=== PATIENT | female | born 1960 | race Caucasian/White ===

== ENCOUNTER 2017-09-20 19:38 | Emergency (ER) | payer SELFPAY ==
[~2017-09-20] VITALS: Ht 157.5 cm; Wt 75.0 kg
[2017-09-20 19:41] VITALS: BP 164/105; PULSE 148; RESP 20; TEMP 98.7; O2SAT 98
[2017-09-20] MEDS ORDERED: SODIUM CHLOR 0.9% 1000 ML INJ 1,000 ML IV SCH (20:57)
--- NOTE | 2017-09-20 20:57 | PD ---
HPI Chief Complaint: GI Complaint Time Seen by Provider: 20:52 Travel History International Travel<30 days: No Contact w/Intl Traveler<30days: No Traveled to known affect area: No History of Present Illness HPI 56-year-old female with history of alcoholism, presents emergency department for evaluation of nausea and vomiting with epigastric pain since this morning. Patient has been on a 2 day alcohol binge but has not consumed any alcohol since yesterday. She states that the pain is severe. Is not radiating anywhere. She states this has happened before when she has gone on alcohol binges. She denies any fever or chills. She states her last few emesis appeared brown and tasted like blood. Denies any hematochezia. Denies any other drug use. Patient has no other symptoms to report. PFSH Past Medical History Arthritis: Yes Autoimmune Disease: No Anxiety: Yes Depression: Yes Heart Rhythm Problems: Yes Cancer: No Cardiac Catheterization: No Cardiovascular Problems: Yes High Cholesterol: No Chemotherapy: No Congestive Heart Failure: No Coronary Artery Disease: No Diabetes: No Diminished Hearing: No Endocrine: No Hypertension: Yes Immune Disorder: No Psychiatric: No Immunizations Current: Yes Thyroid Disease: No ?: Not Tubal Ligation: Yes Past Surgical History Coronary Artery Bypass Graft: No Gynecologic Surgery: Yes Social History Alcohol Use: Yes (OCC FOR PAST 4 MONTHS "SINCE STARTING AA") Tobacco Use: Yes (1 PPD) Substance Use: No Allergies-Medications (Allergen,Severity, Reaction): Coded Allergies: animal dander (Unverified Allergy, Mild, UNK, 09/20/17) egg (Unverified Allergy, Mild, ABD PAIN, 09/20/17) peanut (Unverified Allergy, Mild, HIVES. SWELLING, 09/20/17) penicillin G (Unverified Allergy, Mild, ABD CRAMPS, 09/20/17) soy fiber (Unverified Allergy, Mild, ABD CRAMPS, 09/20/17) Uncoded Allergies: ANTIDEPRESSANTS (Allergy, Mild, STOUT, 05/06/11) DIARY (Allergy, Mild, ABD CRAMPS, 05/06/11) antibiotic (cannot remember) (Allergy, Mild, 11/06/07) Reported Meds & Prescriptions Reported Meds & Active Scripts Active No Active Prescriptions or Reported Medications Review of Systems Except as stated in HPI: all other systems reviewed are Neg Physical Exam Narrative GENERAL: Well nourished female patient, ambulatory no acute distress. SKIN: Focused skin assessment warm/dry. HEAD: Atraumatic. Normocephalic. EYES: Pupils equal and round. No scleral icterus. No injection or drainage. ENT: No nasal bleeding or discharge. Mucous membranes pink and moist. NECK: Trachea midline. No JVD. CARDIOVASCULAR: Tachycardic rate and rhythm. No murmur appreciated. RESPIRATORY: No accessory muscle use. Clear to auscultation. Breath sounds equal bilaterally. GASTROINTESTINAL: Abdomen office. Nondistended. Generalized tenderness to palpation.. MUSCULOSKELETAL: No obvious deformities. No clubbing. No cyanosis. No edema. NEUROLOGICAL: Awake and alert. No obvious cranial nerve deficits. Motor grossly within normal limits. Normal speech. PSYCHIATRIC: Appropriate mood and affect Data Data Last Documented VS Vital Signs Date Time Temp Pulse Resp B/P (MAP) Pulse Ox O2 Delivery O2 Flow Rate FiO2 09/20/17 21:02 100 Room Air 09/20/17 19:41 98.7 148 20 Orders Orders Complete Blood Count With Diff (09/20/17 20:57) Comprehensive Metabolic Panel (09/20/17 20:57) Lipase (09/20/17 20:57) Prothrombin Time / Inr (Pt) (09/20/17 20:57) Act Partial Throm Time (Ptt) (09/20/17 20:57) Urinalysis - C+S If Indicated (09/20/17 20:57) Iv Access Insert/Monitor (09/20/17 20:57) Ecg Monitoring (09/20/17 20:57) Oximetry (09/20/17 20:57) Ondansetron Inj (Zofran Inj) (09/20/17 21:00) Sodium Chlor 0.9% 1000 Ml Inj (Ns 1000 M (09/20/17 20:57) Sodium Chloride 0.9% Flush (Ns Flush) (09/20/17 21:00) Electrocardiogram (09/20/17 20:57) Lorazepam Inj (Ativan Inj) (09/20/17 21:00) Pantoprazole Inj (Protonix Inj) (09/20/17 21:45) Sodium Chlor 0.9% 1000 Ml Inj (Ns 1000 M (09/20/17 22:15) Lorazepam Inj (Ativan Inj) (09/20/17 22:30) Labs Laboratory Tests Test 09/20/17 21:04 White Blood Count 20.3 TH/MM3 Red Blood Count 5.97 MIL/MM3 Hemoglobin 18.9 GM/DL Hematocrit 56.0 % Mean Corpuscular Volume 93.7 FL Mean Corpuscular Hemoglobin 31.6 PG Mean Corpuscular Hemoglobin Concent 33.7 % Red Cell Distribution Width 13.2 % Platelet Count 310 TH/MM3 Mean Platelet Volume 9.2 FL Neutrophils (%) (Auto) 91.3 % Lymphocytes (%) (Auto) 4.8 % Monocytes (%) (Auto) 3.6 % Eosinophils (%) (Auto) 0.0 % Basophils (%) (Auto) 0.3 % Neutrophils # (Auto) 18.5 TH/MM3 Lymphocytes # (Auto) 1.0 TH/MM3 Monocytes # (Auto) 0.7 TH/MM3 Eosinophils # (Auto) 0.0 TH/MM3 Basophils # (Auto) 0.1 TH/MM3 CBC Comment DIFF FINAL Differential Comment Prothrombin Time 10.8 SEC Prothromb Time International Ratio 1.1 RATIO Activated Partial Thromboplast Time 27.9 SEC Blood Urea Nitrogen 24 MG/DL Creatinine 1.29 MG/DL Random Glucose 229 MG/DL Total Protein 9.4 GM/DL Albumin 4.9 GM/DL Calcium Level 9.4 MG/DL Alkaline Phosphatase 108 U/L Aspartate Amino Transf (AST/SGOT) 23 U/L Alanine Aminotransferase (ALT/SGPT) 61 U/L Total Bilirubin 1.0 MG/DL Sodium Level 136 MEQ/L Potassium Level 4.3 MEQ/L Chloride Level 98 MEQ/L Carbon Dioxide Level 14.1 MEQ/L Anion Gap 24 MEQ/L Estimat Glomerular Filtration Rate 43 ML/MIN Lipase 53 U/L [facility] Medical Decision Making Medical Screen Exam Complete: Yes Emergency Medical Condition: Yes Medical Record Reviewed: Yes Differential Diagnosis Alcohol-induced gastritis versus esophageal varices versus pancreatitis versus cholecystitis versus alcohol withdrawal Narrative Course 56-year-old female presents to emergency department for evaluation of nausea and vomiting after a 2 day alcohol binge. Patient appears without distress. She is tachycardic initially. Patient is given IV fluids and Ativan. Patient does have generalized abdominal tenderness, however after pain control, is isolated to the epigastrium and much improved. Patient is given IV normal saline fluid while labs pend. Laboratory Tests Test 09/20/17 21:04 White Blood Count 20.3 TH/MM3 Red Blood Count 5.97 MIL/MM3 Hemoglobin 18.9 GM/DL Hematocrit 56.0 % Mean Corpuscular Volume 93.7 FL Mean Corpuscular Hemoglobin 31.6 PG Mean Corpuscular Hemoglobin Concent 33.7 % Red Cell Distribution Width 13.2 % Platelet Count 310 TH/MM3 Mean Platelet Volume 9.2 FL Neutrophils (%) (Auto) 91.3 % Lymphocytes (%) (Auto) 4.8 % Monocytes (%) (Auto) 3.6 % Eosinophils (%) (Auto) 0.0 % Basophils (%) (Auto) 0.3 % Neutrophils # (Auto) 18.5 TH/MM3 Lymphocytes # (Auto) 1.0 TH/MM3 Monocytes # (Auto) 0.7 TH/MM3 Eosinophils # (Auto) 0.0 TH/MM3 Basophils # (Auto) 0.1 TH/MM3 CBC Comment DIFF FINAL Differential Comment Prothrombin Time 10.8 SEC Prothromb Time International Ratio 1.1 RATIO Activated Partial Thromboplast Time 27.9 SEC Blood Urea Nitrogen 24 MG/DL Creatinine 1.29 MG/DL Random Glucose 229 MG/DL Total Protein 9.4 GM/DL Albumin 4.9 GM/DL Calcium Level 9.4 MG/DL Alkaline Phosphatase 108 U/L Aspartate Amino Transf (AST/SGOT) 23 U/L Alanine Aminotransferase (ALT/SGPT) 61 U/L Total Bilirubin 1.0 MG/DL Sodium Level 136 MEQ/L Potassium Level 4.3 MEQ/L Chloride Level 98 MEQ/L Carbon Dioxide Level 14.1 MEQ/L Anion Gap 24 MEQ/L Estimat Glomerular Filtration Rate 43 ML/MIN Lipase 53 U/L Patient's leukocytosis is likely secondary to vomiting and dehydration with a hemoglobin of 18.9. BMI is 24, creatinine is 1.29. Electrolytes are within normal limits. She has remained tachycardic. Patient given additional IV normal saline fluid. Hemoccult of emesis is positive. Patient is also given IV Protonix. Patient is signed out to my attending physician Dr. Zepeda who will disposition the patient per her judgment. [facility] Point of Care Internal Pos. & Neg. Controls: Passed Gastric Specimen Occult Blood: Positive Diagnosis Primary Impression: Nausea & vomiting Qualified Codes: R11.2 - Nausea with vomiting, unspecified Additional Impressions: Alcohol abuse Gastritis Qualified Codes: K29.21 - Alcoholic gastritis with bleeding Scripts No Active Prescriptions or Reported Meds Condition: Rhona Barrera Sep 20, 2017 20:57
[2017-09-20] MEDS ORDERED: LORazepam 2 MG/ML VIAL IV PUSH ONE ×2 (21:00→22:30)
[2017-09-20] MEDS ORDERED: SODIUM CHLORIDE 0.9% FLUSH 10 ML FLUSH IV FLUSH PRN (21:00)
[2017-09-20] MEDS ORDERED: ONDANSETRON HCL 4 MG/2 ML VIAL IVP ONE (21:00)
[2017-09-20 21:02] VITALS: O2SAT 100
--- NOTE | 2017-09-20 21:29 | PD ---
Physical Exam Date Seen by Provider: Sep 20, 2017 Narrative Patient presents with nausea and vomiting which started after heavy alcohol consumption Data Data Last Documented VS Vital Signs Date Time Temp Pulse Resp B/P (MAP) Pulse Ox O2 Delivery O2 Flow Rate FiO2 09/20/17 21:02 100 Room Air 09/20/17 19:41 98.7 148 20 Orders Orders Complete Blood Count With Diff (09/20/17 20:57) Comprehensive Metabolic Panel (09/20/17 20:57) Lipase (09/20/17 20:57) Prothrombin Time / Inr (Pt) (09/20/17 20:57) Act Partial Throm Time (Ptt) (09/20/17 20:57) Urinalysis - C+S If Indicated (09/20/17 20:57) Iv Access Insert/Monitor (09/20/17:57) Ecg Monitoring (09/20/17:57) Oximetry (09/20/17 20:57) Ondansetron Inj (Zofran Inj) (09/20/17 21:00) Sodium Chlor 0.9% 1000 Ml Inj (Ns 1000 M (09/20/17 20:57) Sodium Chloride 0.9% Flush (Ns Flush) (09/20/17 21:00) Electrocardiogram (09/20/17 20:57) Lorazepam Inj (Ativan Inj) (09/20/17 21:00) MDM Supervised Visit with JOAN: Yes Narrative Course I, Dr. Zepeda, have reviewed the advance practice practitioner's documentation and am in agreement, met with the patient face to face, made the diagnosis, and the medical decision making was done by me. *My assessment and Findings: Patient is awake and alert. She has an emesis bag up by her mouth. Please see Rhona Amezcua NP's note for results of laboratory and radiographic evaluation, ED course, final diagnosis and disposition Scripts No Active Prescriptions or Reported Meds Patti Zepeda MD Sep 20, 2017 21:29
[2017-09-20 21:44] LABS: AUTOMATED NEUTROPHIL # 18.5 TH/MM3 (1.8-7.7); BASOPHIL # 0.1 TH/MM3 (0-0.2); BASOPHIL % 0.3 % (0.0-2.0); HEMO FLAGS DIFF FINAL; LYMPH % 4.8 % (9.0-44.0); MEAN CELL VOLUME 93.7 FL (80.0-100.0); MEAN CORPUSCULAR HEMOGLOBIN 31.6 PG (27.0-34.0); MEAN CORPUSCULAR HGB CONC 33.7 % (32.0-36.0); MONO % 3.6 % (0.0-8.0); NEUT % 91.3 % (16.0-70.0); PLATELET COUNT 310 TH/MM3 (150-450); RED BLOOD COUNT 5.97 MIL/MM3 (4.00-5.30); RED CELL DISTRIBUTION WIDTH 13.2 % (11.6-17.2); WHITE BLOOD COUNT 20.3 TH/MM3 (4.0-11.0)
[2017-09-20] MEDS ORDERED: PANTOPRAZOLE SODIUM 40 MG VIAL IV PUSH ONE (21:45)
[2017-09-20 21:49] LABS: APTT (PATIENT) 27.9 SEC (24.3-30.1); INTERNATIONAL NORMALIZED RATIO 1.1 RATIO; PROTHROMBIN TIME - PATIENT 10.8 SEC (9.8-11.6)
[2017-09-20 22:01] LABS: ALT (GPT) 61 U/L (10-53); ANION GAP 24 MEQ/L (5-15); AST (GOT) 23 U/L (15-37); BICARBONATE 14.1 MEQ/L (21.0-32.0); BLOOD UREA NITROGEN 24 MG/DL (7-18); CHLORIDE 98 MEQ/L (98-107); GLOMERULAR FILTRATION RATE 43 ML/MIN (>89); POTASSIUM 4.3 MEQ/L (3.5-5.1); SODIUM (NA) 136 MEQ/L (136-145)
[2017-09-20 22:04] LABS: ALKALINE PHOSPHATASE 108 U/L (45-117)
[2017-09-20] MEDS ORDERED: SODIUM CHLOR 0.9% 1000 ML INJ 1,000 ML IV ONE (22:15)
[2017-09-20 22:33] VITALS: PULSE 133
[2017-09-21 00:08] VITALS: BP 132/82; PULSE 134; RESP 20; O2SAT 100
[2017-09-21] MEDS ORDERED: ZOFR4TAB PO (00:18)
[2017-09-21] MEDS ORDERED: PRIL20TA2 PO (00:18)
--- NOTE | 2017-09-21 19:27 | EKG ---
Date Performed: 09/20/2017 Time Performed: 21:11:47 PTAGE: 56 years EKG: SINUS TACHYCARDIA NONSPECIFIC ST & T-WAVE ABNORMALITY ABNORMAL RHYTHM ECG PREVIOUS TRACING : 12/11/2015 11.20 SINCE PRIOR TRACING HEART RATE IS FASTER AND NONSPECIFIC FA CTOR ARE MORE PROMINENT. DOCTOR: Priyank Villalobos Interpretating Date/Time 09/21/2017 19:26:08
== END 2017-09-21 00:28 | disposition home or self-care (01) ==
LOC: NEPE 19:38
DX: R11.2 Nausea with vomiting, unspecified (principal); K29.20 Alcoholic gastritis without bleeding; D72.829 Elevated white blood cell count, unspecified; R00.0 Tachycardia, unspecified; R94.31 Abnormal electrocardiogram [ECG] [EKG]; M19.90 Unspecified osteoarthritis, unspecified site; F41.9 Anxiety disorder, unspecified; I10 Essential (primary) hypertension; F17.200 Nicotine dependence, unspecified, uncomplicated
CPT/HCPCS: 80053; 83690; 85025; 85610; 85730; 93005; 96361; 96374; 96375; 96376; 99284; C9113; J2060; J2405; J7030

== ENCOUNTER 2018-01-29 19:00 | Emergency (ER) | payer SELFPAY ==
[~2018-01-29] VITALS: Ht 157.5 cm; Wt 72.0 kg
[~2018-01-29 19:00] MED LIST: PRIL20TA2 PO; ZOFR4TAB PO
[2018-01-29 19:14] VITALS: BP 152/115; PULSE 136; RESP 26; TEMP 97.4; O2SAT 98
--- NOTE | 2018-01-29 19:56 | PD ---
HPI Chief Complaint: GI Complaint Time Seen by Provider: 19:26 Travel History International Travel<30 days: No Contact w/Intl Traveler<30days: No Traveled to known affect area: No History of Present Illness HPI Patient is a 57-year-old female who is coming in complaining that she has been drinking whiskey without eating for 2 days. She has been vomiting excessively all day today since 1:00 pm ..she is not able to tolerate any p.o... she is unable to tolerate fluid as well. she says all she wants to do is drink some water. She has had an episode of this a few years back came to the ER for the same .. she denies being a chronic alcohol abuser .. she says this happens very rarely wherever she over does it ,,once in a blue white. Patient denies abdominal surgery except for tubal ligation many years ago.. she denies problems with her pancreas... she denies problems with her gallbladder ..she denies any liver problems.. she is sitting in the bed tripoding leaning forward looking like she is in severe pain and very uncomfortable . She is complaining of epigastric periumbilical pain and severe nausea since 1 PM today.. unable to keep anything down to alleviate her symptoms. Has not tried anything to calm her symptoms PFSH Past Medical History Arthritis: Yes Autoimmune Disease: No Anxiety: Yes Depression: Yes Heart Rhythm Problems: Yes Cancer: No Cardiac Catheterization: No Cardiovascular Problems: Yes High Cholesterol: No Chemotherapy: No Congestive Heart Failure: No Coronary Artery Disease: No Diabetes: No Diminished Hearing: No Endocrine: No Heparin Induced Thrombocytopen: No Hypertension: Yes Immune Disorder: No Implanted Vascular Access Dvce: No Psychiatric: No Immunizations Current: Yes Thyroid Disease: No ?: Not Tubal Ligation: Yes Past Surgical History Coronary Artery Bypass Graft: No Gynecologic Surgery: Yes Family History Family Myocardial Infarction: No Social History Alcohol Use: Yes ([facility] FOR PAST 4 MONTHS "SINCE STARTING AA") Tobacco Use: Yes (1 PPD) Substance Use: Yes (MARIJUANA ) Allergies-Medications (Allergen,Severity, Reaction): Coded Allergies: animal dander (Unverified Allergy, Mild, UNK, 01/29/18) egg (Unverified Allergy, Mild, ABD PAIN, 01/29/18) peanut (Unverified Allergy, Mild, HIVES. SWELLING, 01/29/18) penicillin G (Unverified Allergy, Mild, ABD CRAMPS, 01/29/18) soy fiber (Unverified Allergy, Mild, ABD CRAMPS, 01/29/18) azithromycin (Verified Allergy, Unknown, 01/29/18) Uncoded Allergies: ANTIDEPRESSANTS (Allergy, Mild, STOUT, 05/06/11) DIARY (Allergy, Mild, ABD CRAMPS, 05/06/11) antibiotic (cannot remember) (Allergy, Mild, 11/06/07) Reported Meds & Prescriptions Reported Meds & Active Scripts Active Ativan (Lorazepam) 0.5 Mg Tab 0.5 Mg PO Q8H PRN Zofran (Ondansetron HCl) 4 Mg Tab 4 Mg PO Q6HR PRN Prilosec (Omeprazole Magnesium) 20 Mg Tab 1 Tab PO DAILY Zofran (Ondansetron HCl) 4 Mg Tab 4 Mg PO Q6HR PRN Review of Systems Except as stated in HPI: all other systems reviewed are Neg Gastrointestinal: Positive: Nausea, Vomiting, Abdominal Pain Physical Exam Narrative GENERAL: Patient appears very uncomfortable she is leaning forward in the bed trying not to lie down no active retching or vomiting at this time SKIN: Warm and dry. HEAD: Atraumatic. Normocephalic. EYES: Pupils equal and round. No scleral icterus. No injection or drainage. ENT: No nasal bleeding or discharge. Mucous membranes pink and moist. NECK: Trachea midline. No JVD. CARDIOVASCULAR: Regular rate and rhythm. RESPIRATORY: No accessory muscle use. Clear to auscultation. Breath sounds equal bilaterally. GASTROINTESTINAL: Abdomen mild tenderness epigastrium and periumbilical area. There is no right lower quadrant or right upper quadrant tenderness MUSCULOSKELETAL: Extremities without clubbing, cyanosis, or edema. No obvious deformities. NEUROLOGICAL: Awake and alert. No obvious cranial nerve deficits. Motor grossly within normal limits. Five out of 5 muscle strength in the arms and legs. Normal speech. PSYCHIATRIC: Appropriate mood and affect; insight and judgment normal. Data Data Last Documented VS Vital Signs Date Time Temp Pulse Resp B/P (MAP) Pulse Ox O2 Delivery O2 Flow Rate FiO2 01/30/18 06:47 01/30/18 05:16 89 16 96 Room Air 01/29/18 19:14 97.4 Orders Orders Complete Blood Count With Diff (01/29/18 19:52) Comprehensive Metabolic Panel (01/29/18 19:52) Lipase (01/29/18 19:52) Ondansetron Inj (Zofran Inj) (01/29/18 20:00) Famotidine Inj (Pepcid Inj) (01/29/18 20:00) Sodium Chlor 0.9% 1000 Ml Inj (Ns 1000 M (01/29/18 20:00) Lorazepam Inj (Ativan Inj) (01/29/18 21:15) Dext 5%-Nacl 0.9% 1000 Ml Inj (D5w-Ns 10 (01/29/18 21:15) Urinalysis - C+S If Indicated (01/29/18 21:07) Electrocardiogram (01/29/18 ) Troponin I (01/29/18 21:38) Chest, Pa & Lat (01/29/18 ) Lorazepam Inj (Ativan Inj) (01/29/18 23:15) Chlordiazepoxide (Librium) (01/30/18 00:15) Alcohol (Ethanol) (01/30/18 02:27) Sodium Chlor 0.9% 1000 Ml Inj (Ns 1000 M (01/30/18 03:30) Sodium Chlor 0.9% 1000 Ml Inj (Ns 1000 M (01/30/18 03:30) Ed Discharge Order (01/30/18 06:24) Electrocardiogram (01/29/18 21:37) Labs Laboratory Tests Test 01/29/18 20:00 01/29/18 21:15 White Blood Count 22.6 TH/MM3 Red Blood Count 5.94 MIL/MM3 Hemoglobin 18.1 GM/DL Hematocrit 53.8 % Mean Corpuscular Volume 90.6 FL Mean Corpuscular Hemoglobin 30.4 PG Mean Corpuscular Hemoglobin Concent 33.6 % Red Cell Distribution Width 12.9 % Platelet Count 280 TH/MM3 Mean Platelet Volume 9.3 FL Neutrophils (%) (Auto) 89.3 % Lymphocytes (%) (Auto) 6.7 % Monocytes (%) (Auto) 3.7 % Eosinophils (%) (Auto) 0.0 % Basophils (%) (Auto) 0.3 % Neutrophils # (Auto) 20.2 TH/MM3 Lymphocytes # (Auto) 1.5 TH/MM3 Monocytes # (Auto) 0.8 TH/MM3 Eosinophils # (Auto) 0.0 TH/MM3 Basophils # (Auto) 0.1 TH/MM3 CBC Comment DIFF FINAL Differential Comment Blood Urea Nitrogen 17 MG/DL Creatinine 0.90 MG/DL Random Glucose 117 MG/DL Total Protein 8.7 GM/DL Albumin 4.9 GM/DL Calcium Level 9.8 MG/DL Alkaline Phosphatase 98 U/L Aspartate Amino Transf (AST/SGOT) 28 U/L Alanine Aminotransferase (ALT/SGPT) 65 U/L Total Bilirubin 0.9 MG/DL Sodium Level 138 MEQ/L Potassium Level 4.1 MEQ/L Chloride Level 102 MEQ/L Carbon Dioxide Level 18.6 MEQ/L Anion Gap 17 MEQ/L Estimat Glomerular Filtration Rate 65 ML/MIN Troponin I LESS THAN 0.02 NG/ML Lipase 96 U/L Ethyl Alcohol Level LESS THAN 3 MG/DL Urine Color YELLOW Urine Turbidity CLEAR Urine pH 5.5 Urine Specific [place] 1.021 Urine Protein 100 mg/dL Urine Glucose (UA) NEG mg/dL Urine Ketones 150 mg/dL Urine Occult Blood NEG Urine Nitrite NEG Urine Bilirubin NEG Urine Urobilinogen 2.0 MG/DL Urine Leukocyte Esterase NEG Urine RBC 1 /hpf Urine WBC 2 /hpf Urine Squamous Epithelial Cells 4 /hpf Urine Bacteria RARE /hpf Urine Hyaline Casts 77 /lpf Urine Mucus FEW /lpf Microscopic Urinalysis Comment CULT NOT INDICATED MDM Medical Decision Making Medical Screen Exam Complete: Yes Emergency Medical Condition: Yes Differential Diagnosis Differential diagnosis includes alcohol induced gastritis versus pancreatitis versus cholecystitis versus gastric reflux disease NOS versus obstruction versus other Narrative Course Pepcid IV Zofran IV liter of fluid reevaluate labs reassess then she was tachy possibly due to etoh withdrawal Ativan and 3 liters NS iv over 7 hrs in ER ... now pt is not tachy and she is safe for discharge with Zofran and ativan Rx and etoh abstinence advised Diagnosis Primary Impression: Vomiting Qualified Codes: R11.10 - Vomiting, unspecified Additional Impression: Alcohol abuse Patient Instructions: Abuse of Alcohol (ED), General Instructions Scripts Lorazepam (Ativan) 0.5 Mg Tab 0.5 MG PO Q8H Y for WITHDRAWAL, #10 TAB 0 Refills Prov: Yaniv Rojas MD 01/30/18 Ondansetron (Zofran) 4 Mg Tab 4 MG PO Q6HR Y for NAUSEA OR VOMITING, #10 TAB 0 Refills Prov: Yaniv Rojas MD 01/30/18 Disposition: 01 DISCHARGE HOME Condition: Good Yaniv Rojas MD Jan 29, 2018 19:56
[2018-01-29] MEDS ORDERED: ONDANSETRON HCL 4 MG/2 ML VIAL IV PUSH ONE (20:00)
[2018-01-29] MEDS ORDERED: FAMOTIDINE 20 MG/2 ML VIAL IV PUSH SCH (20:00)
[2018-01-29] MEDS ORDERED: SODIUM CHLOR 0.9% 1000 ML INJ 1,000 ML IV ONE (20:00)
[2018-01-29 20:10] LABS: AUTOMATED NEUTROPHIL # 20.2 TH/MM3 (1.8-7.7); BASOPHIL # 0.1 TH/MM3 (0-0.2); BASOPHIL % 0.3 % (0.0-2.0); HEMATOCRIT 53.8 % (35.0-46.0); HEMOGLOBIN 18.1 GM/DL (11.6-15.3); LYMPH % 6.7 % (9.0-44.0); LYMPHOCYTE # 1.5 TH/MM3 (1.0-4.8); MEAN CELL VOLUME 90.6 FL (80.0-100.0); MEAN CORPUSCULAR HEMOGLOBIN 30.4 PG (27.0-34.0); MEAN CORPUSCULAR HGB CONC 33.6 % (32.0-36.0); MEAN PLATELET VOLUME 9.3 FL (7.0-11.0); MONO % 3.7 % (0.0-8.0); MONOCYTE # 0.8 TH/MM3 (0-0.9); NEUT % 89.3 % (16.0-70.0); PLATELET COUNT 280 TH/MM3 (150-450); RED BLOOD COUNT 5.94 MIL/MM3 (4.00-5.30); RED CELL DISTRIBUTION WIDTH 12.9 % (11.6-17.2); WHITE BLOOD COUNT 22.6 TH/MM3 (4.0-11.0)
[2018-01-29 20:25] LABS: ALBUMIN 4.9 GM/DL (3.4-5.0); AST (GOT) 28 U/L (15-37); BICARBONATE 18.6 MEQ/L (21.0-32.0); BLOOD UREA NITROGEN 17 MG/DL (7-18); CALCIUM 9.8 MG/DL (8.5-10.1); CHLORIDE 102 MEQ/L (98-107); GLOMERULAR FILTRATION RATE 65 ML/MIN (>89); GLUCOSE,RANDOM 117 MG/DL (74-106); SODIUM (NA) 138 MEQ/L (136-145)
[2018-01-29 20:27] LABS: ALT (GPT) 65 U/L (10-53)
[2018-01-29 20:28] LABS: ALKALINE PHOSPHATASE 98 U/L (45-117); TOTAL BILIRUBIN ADULT 0.9 MG/DL (0.2-1.0); TOTAL PROTEIN 8.7 GM/DL (6.4-8.2)
[2018-01-29] MEDS: DEXT 5%-NACL 0.9% 1000 ML INJ 1,000 ML IV SCH (21:14)
[2018-01-29] MEDS ORDERED: LORazepam 2 MG/ML VIAL IV PUSH ONE ×2 (21:15→23:15)
[2018-01-29 21:42] LABS: BACTERIA, URINE RARE /hpf; BILIRUBIN, URINE NEG (NEG); BLOOD, URINE NEG (NEG); GLUCOSE,URINE NEG (NEG); HYALINE CAST, URINE 77 /lpf (RARE); KETONE, URINE 150 mg/dL (NEG); MUCUS URINE FEW /lpf (OCC); NITRITE,URINE NEG (NEG); PH, URINE 5.5 (5.0-8.5); SQUAMOUS EPITHELIAL CELL URINE 4 /hpf (0-5); URINE COLOR YELLOW (YELLW/STRAW); URINE LEUKOCYTE ESTERASE NEG (NEG)
--- NOTE | 2018-01-29 23:02 | RADRPT ---
EXAM DATE/TIME: 01/29/2018 22:55 [facility] COMPARISON: No previous studies available for comparison. INDICATIONS : Vomiting. MEDICAL HISTORY : Hypertension. Arthritis. SURGICAL HISTORY : Tubal ligation. ENCOUNTER: Initial ACUITY: 1 month PAIN SCORE: 5/10 LOCATION: Bilateral chest FINDINGS: PA and lateral views of the chest demonstrate the lungs to be symmetrically aerated without evidence of mass, infiltrate or effusion. The cardiomediastinal contours are unremarkable. Osseous structure s are intact. CONCLUSION: No acute disease. Maxx Gaxiola Jr., MD on January 29, 2018 at 22:59 Board Certified Radiologist. This report was verified electronically.
[2018-01-29 23:28] VITALS: BP 156/91; PULSE 127; RESP 16; O2SAT 97
[2018-01-30] MEDS ORDERED: chlordiazePOXIDE 25 MG CAP PO PRN (00:15)
[2018-01-30 02:26] VITALS: BP 145/90; PULSE 110; RESP 16; O2SAT 98
[2018-01-30] MEDS ORDERED: SODIUM CHLOR 0.9% 1000 ML INJ 1,000 ML IV ONE ×2 (03:30)
[2018-01-30] MEDS: DEXT 5%-NACL 0.9% 1000 ML INJ 1,000 ML IV SCH (05:15)
[2018-01-30 05:16] VITALS: BP 128/71; PULSE 89; RESP 16; O2SAT 96
[2018-01-30] MEDS ORDERED: ZOFR4TAB PO (06:22)
[2018-01-30] MEDS ORDERED: LORA-392 PO (06:22)
--- NOTE | 2018-01-30 18:48 | EKG ---
Date Performed: 01/29/2018 Time Performed: 21:37:23 PTAGE: 57 years EKG: SINUS TACHYCARDIA DIFFUSE NONSPECIFIC ST-T ABNORMALITY WITH SOME MILD VARIATION COMPARED TO THE PRIOR TRACING ABNORMAL ECG NO PREVIOUS TRACING DOCTOR: Niles Riojas Interpretating Date/Time 01/30/2018 18:47:18
--- NOTE | 2018-01-30 18:48 | EKG ---
Date Performed: 01/30/2018 Time Performed: 01:42:07 PTAGE: 57 years EKG: SINUS TACHYCARDIA NONSPECIFIC ST & T-WAVE ABNORMALITY Compared to previous tracing, ST-T wa ve abnormality slight less from the prior tracing ABNORMAL RHYTHM ECG PREVIOUS TRACING : 09/20/2017 21.11 DOCTOR: Niles Riojas Interpretating Date/Time 01/30/2018 18:47:42
== END 2018-01-30 06:48 | disposition home or self-care (01) ==
LOC: NEPE 19:00
DX: R11.10 Vomiting, unspecified (principal); F10.10 Alcohol abuse, uncomplicated; F12.90 Cannabis use, unspecified, uncomplicated; F17.200 Nicotine dependence, unspecified, uncomplicated; R00.0 Tachycardia, unspecified; Y90.0 Blood alcohol level of less than 20 mg/100 ml; Z79.899 Other long term (current) drug therapy
CPT/HCPCS: 71046; 80053; 80307; 81001; 83690; 84484; 85025; 93005; 96361; 96374; 96375; 96376; 99285; J2060; J2405; J7030; J7042